=== PATIENT | female | born 1990 | race Caucasian/White ===

== ENCOUNTER 2016-09-26 15:28 | Emergency (ER) | payer OTHER ==
[~2016-09-26] VITALS: Ht 162.6 cm; Wt 68.2 kg
[~2016-09-26 15:28] MED LIST: IBUP-2070 PO; LABE200T PO; PREN1TAB80 PO
[2016-09-26 16:09] LABS: BASOPHILS # (AUTO) 0.04 K/uL (0.00-0.20); BASOPHILS % (AUTO) 0.3 % (0.0-2.0); EOSINOPHILS # (AUTO) 0.13 K/uL (0.00-0.70); EOSINOPHILS % (AUTO) 1.13 % (1.0-6.0); LYMPHOCYTES # (AUTO) 1.7 K/uL (1.0-4.8); LYMPHOCYTES % (AUTO) 15.2 % (22.0-44.0); MEAN CORPUSCULAR HEMOGLOBIN 27.9 pg (26.0-34.0); MEAN CORPUSCULAR HGB CONC 34.1 G/dL (31.0-37.0); MEAN CORPUSCULAR VOLUME 82 fL (80-100); MONOCYTES # (AUTO) 0.5 K/uL (0.1-1.0); MONOCYTES % (AUTO) 4.8 % (2.0-9.0); NEUTROPHILS # (AUTO) 8.7 K/uL (1.8-7.7); NEUTROPHILS % (AUTO) 78.6 % (40.0-70.0); PLATELET COUNT (AUTO) 278 K/uL (150-450); RED BLOOD CELL COUNT(AUTO) 4.65 MIL/uL (4.00-5.20); RED CELL DISTRIBUTION WIDTH 13.1 % (11.5-14.5); WHITE BLOOD COUNT (AUTO) 11.1 K/uL (4.5-11.0)
[2016-09-26 17:55] VITALS: BP 131/85
== END 2016-09-26 17:57 | disposition home or self-care (01) ==
LOC: EMS 15:29 → EEVIPCON 15:29 → EMS 17:57
DX: O20.8 Other hemorrhage in early pregnancy (principal); Z3A.08 8 weeks gestation of pregnancy
CPT/HCPCS: 76801; 76817; 86901; 99285

== ENCOUNTER → 2017-03-13 | Outpatient (CLI) | payer OTHER ==
[~2017-03-13] MED LIST changes: -LABE200T PO
== END | disposition home or self-care (01) ==
LOC: LABMN 14:53
PROVIDERS: ATTEND Internal Medicine
DX: Z11.1 Encounter for screening for respiratory tuberculosis (principal)
CPT/HCPCS: 86480

== ENCOUNTER 2017-03-25 11:25 | Observation (INO) | payer OTHER ==
[~2017-03-25] VITALS: Ht 162.6 cm; Wt 77.6 kg
[2017-03-25 11:33] VITALS: BP 122/69
[2017-03-25 12:47] LABS: GLUCOSE,POINT OF CARE 130 MG/DL (70-110)
== END 2017-03-25 12:20 | disposition home or self-care (01) ==
LOC: 4S 11:25
PROVIDERS: ADMIT Obstetrics & Gynecology Gynecology; ATTEND Obstetrics & Gynecology Gynecology
DX: O24.419 Gestational diabetes mellitus in pregnancy, unspecified control (principal); Z3A.34 34 weeks gestation of pregnancy
CPT/HCPCS: 59025; 82962; G0378

== ENCOUNTER 2017-03-28 09:00 | Observation (INO) | payer OTHER ==
[2017-03-28 09:22] VITALS: BP 120/75
[2017-03-28] MEDS ORDERED: GLYB1.253 PO (09:35)
[2017-03-28] MEDS ORDERED: DIPH25 PO (09:45)
[2017-03-28 09:57] LABS: GLUCOSE,POINT OF CARE 122 MG/DL (70-110)
== END 2017-03-28 10:15 | disposition home or self-care (01) ==
LOC: 4S 09:00
PROVIDERS: ADMIT Specialist; ATTEND Specialist
DX: O24.419 Gestational diabetes mellitus in pregnancy, unspecified control (principal); Z3A.34 34 weeks gestation of pregnancy
CPT/HCPCS: 59025; 82962; G0378

== ENCOUNTER 2017-03-28 11:03 | Observation (INO) | payer OTHER ==
[~2017-03-28] VITALS: Ht 162.6 cm; Wt 78.0 kg
[~2017-03-28 11:03] MED LIST changes: +DIPH25 PO; +GLYB1.253 PO
[2017-03-30 11:28] LABS: GLUCOSE,POINT OF CARE 88 MG/DL (70-110)
== END 2017-03-30 14:00 | disposition home or self-care (01) ==
LOC: 4S 03-30 10:49
PROVIDERS: ADMIT Specialist; ATTEND Specialist
DX: O36.8130 Decreased fetal movements, third trimester, not applicable or unspecified (principal); O24.419 Gestational diabetes mellitus in pregnancy, unspecified control; Z3A.34 34 weeks gestation of pregnancy
CPT/HCPCS: 59025; 76805; 82962; G0378

== ENCOUNTER 2017-04-03 18:57 | Observation (INO) | payer OTHER ==
[~2017-04-03] VITALS: Ht 162.6 cm; Wt 172.0 kg
[2017-04-03 19:42] VITALS: BP 124/80
[2017-04-03 22:07] LABS: GLUCOSE,POINT OF CARE 88 MG/DL (70-110)
== END 2017-04-03 20:15 | disposition home or self-care (01) ==
LOC: 4S 18:57
PROVIDERS: ADMIT Obstetrics & Gynecology; ATTEND Obstetrics & Gynecology
DX: O24.419 Gestational diabetes mellitus in pregnancy, unspecified control (principal); Z3A.35 35 weeks gestation of pregnancy
CPT/HCPCS: 59025; 82962; G0378

== ENCOUNTER 2017-04-06 15:29 | Observation (INO) | payer OTHER ==
[2017-04-06 15:48] VITALS: BP 120/82
[2017-04-06 16:02] LABS: GLUCOSE,POINT OF CARE 68 MG/DL (70-110)
[2017-04-06] MEDS: RINGERS SOLUTION,LACTATED 1,000 ML IV SCH ×3 (16:45→19:42)
[2017-04-06] MEDS ORDERED: RINGERS SOLUTION,LACTATED 1,000 ML IV ONE (16:52)
[2017-04-06] MEDS: NIFEdipine 10 MG CAPSULE PO SCH (22:24)
[2017-04-06 23:13] LABS: GLUCOSE,POINT OF CARE 82 MG/DL (70-110)
[2017-04-07 01:07] LABS: GLUCOSE,POINT OF CARE 66 MG/DL (70-110)
[2017-04-07] MEDS: RINGERS SOLUTION,LACTATED 1,000 ML IV SCH (03:03)
[2017-04-07 03:12] LABS: GLUCOSE,POINT OF CARE 66 MG/DL (70-110)
[2017-04-07] MEDS: NIFEdipine 10 MG CAPSULE PO SCH ×2 (04:09→09:45)
[2017-04-07 05:07] LABS: GLUCOSE,POINT OF CARE 75 MG/DL (70-110)
[2017-04-07 12:34] LABS: GLUCOSE,POINT OF CARE 83 MG/DL (70-110)
[2017-04-07 12:34] LABS: GLUCOSE,POINT OF CARE 72 MG/DL (70-110)
== END 2017-04-07 11:10 | disposition home or self-care (01) ==
LOC: 4S 15:29
PROVIDERS: ADMIT Obstetrics & Gynecology; ATTEND Obstetrics & Gynecology
DX: O24.419 Gestational diabetes mellitus in pregnancy, unspecified control (principal); Z3A.36 36 weeks gestation of pregnancy
CPT/HCPCS: 59025 ×2; 76805; 82962 ×2; 87210; 96360; 96361 ×2; G0378 ×2; J7120 ×2

== ENCOUNTER 2017-04-10 08:25 | Observation (INO) | payer OTHER ==
[2017-04-10] MEDS ORDERED: DSS100 PO (08:57)
[2017-04-10 09:01] VITALS: BP 131/75
[2017-04-10 11:07] LABS: GLUCOSE,POINT OF CARE 82 MG/DL (70-110)
== END 2017-04-10 11:00 | disposition home or self-care (01) ==
LOC: 4S 08:25
PROVIDERS: ADMIT Obstetrics & Gynecology; ATTEND Obstetrics & Gynecology
DX: O24.419 Gestational diabetes mellitus in pregnancy, unspecified control (principal); O99.013 Anemia complicating pregnancy, third trimester; Z3A.36 36 weeks gestation of pregnancy
CPT/HCPCS: 59025; 82962; G0378

== ENCOUNTER 2017-04-13 08:35 | Observation (INO) | payer OTHER ==
[~2017-04-13 08:35] MED LIST changes: +DSS100 PO; -IBUP-2070 PO
[2017-04-13 09:13] LABS: GLUCOSE,POINT OF CARE 74 MG/DL (70-110)
== END 2017-04-13 10:00 | disposition home or self-care (01) ==
LOC: 4S 08:35
PROVIDERS: ADMIT Obstetrics & Gynecology; ATTEND Obstetrics & Gynecology
DX: O24.419 Gestational diabetes mellitus in pregnancy, unspecified control (principal); Z3A.36 36 weeks gestation of pregnancy
CPT/HCPCS: 59025; 76816; 82962; G0378

== ENCOUNTER 2017-04-15 19:52 | Observation (INO) | payer OTHER ==
[~2017-04-15] VITALS: Ht 162.6 cm; Wt 78.5 kg
[2017-04-15 20:47] LABS: GLUCOSE,POINT OF CARE 141 MG/DL (70-110)
[2017-04-15 20:51] VITALS: BP 129/79
== END 2017-04-16 01:00 | disposition home or self-care (01) ==
LOC: 4S 19:52
PROVIDERS: ADMIT Obstetrics & Gynecology; ATTEND Obstetrics & Gynecology
DX: O62.9 Abnormality of forces of labor, unspecified (principal); O24.419 Gestational diabetes mellitus in pregnancy, unspecified control; O14.93 Unspecified pre-eclampsia, third trimester; Z3A.37 37 weeks gestation of pregnancy
CPT/HCPCS: 59025; 82962; G0378 ×2

== ENCOUNTER 2017-04-17 09:05 | Observation (INO) | payer OTHER ==
[~2017-04-17] VITALS: Ht 162.6 cm; Wt 77.6 kg
[2017-04-17 09:21] VITALS: BP 127/81
[2017-04-17 09:52] LABS: GLUCOSE,POINT OF CARE 77 MG/DL (70-110)
== END 2017-04-17 11:50 | disposition home or self-care (01) ==
LOC: 4S 09:05
PROVIDERS: ADMIT Obstetrics & Gynecology; ATTEND Obstetrics & Gynecology
DX: O62.9 Abnormality of forces of labor, unspecified (principal); Z3A.37 37 weeks gestation of pregnancy
CPT/HCPCS: 59025; 76805; 82962; G0378

== ENCOUNTER 2017-04-21 09:07 | Observation (INO) | payer OTHER ==
[~2017-04-21] VITALS: Ht 162.6 cm; Wt 78.9 kg
[2017-04-21 09:18] VITALS: BP 126/81
[2017-04-21 12:41] LABS: GLUCOSE COMMENT 1 Doctor Notified; GLUCOSE,POINT OF CARE 93 MG/DL (70-110)
== END 2017-04-21 10:00 | disposition home or self-care (01) ==
LOC: 4S 09:07
PROVIDERS: ADMIT Obstetrics & Gynecology; ATTEND Obstetrics & Gynecology
DX: O24.419 Gestational diabetes mellitus in pregnancy, unspecified control (principal); Z3A.38 38 weeks gestation of pregnancy
CPT/HCPCS: 59025; 82962; G0378

== ENCOUNTER 2017-04-23 11:05 | Inpatient (IN) | payer OTHER ==
[~2017-04-23] VITALS: Ht 167.6 cm; Wt 78.9 kg
[2017-04-23 11:15] VITALS: BP 136/85
[2017-04-23] MEDS ORDERED: RINGERS SOLUTION,LACTATED 1,000 ML IV ONE (15:42)
[2017-04-23] MEDS ORDERED: CITRIC ACID/SODIUM CITRATE 30 ML SOLUTION UDCUP PO ONE (15:45)
[2017-04-23] MEDS ORDERED: METOCLOPRAMIDE HCL 5 MG/ML 2 ML VIAL IVP ONE (15:45)
[2017-04-23] MEDS: DEXTROSE 5%-0.45% SODIUM CHL 1,000 ML IV SCH (15:50)
[2017-04-23 15:52] LABS: GLUCOSE,POINT OF CARE 84 MG/DL (70-110)
[2017-04-23 16:18] LABS: BASOPHILS % (AUTO) 0.9 % (0.0-2.0); EOSINOPHILS % (AUTO) 0.9 % (1.0-6.0); HEMATOCRIT 36.5 % (36-46); HEMOGLOBIN 12.6 g/dL (12.0-16.0); LYMPHOCYTES # (AUTO) 1.3 K/uL (1.0-4.8); MEAN CORPUSCULAR HEMOGLOBIN 29.4 pg (26.0-34.0); MEAN CORPUSCULAR HGB CONC 34.6 G/dL (31.0-37.0); MEAN CORPUSCULAR VOLUME 85 fL (80-100); MONOCYTES # (AUTO) 0.5 K/uL (0.1-1.0); MONOCYTES % (AUTO) 5.4 % (2.0-9.0); NEUTROPHILS # (AUTO) 7.5 K/uL (1.8-7.7); NEUTROPHILS % (AUTO) 78.8 % (40.0-70.0); RED CELL DISTRIBUTION WIDTH 14.1 % (11.5-14.5); WHITE BLOOD COUNT (AUTO) 9.5 K/uL (4.5-11.0)
[2017-04-23] MEDS ORDERED: MIDAZOLAM HCL 2 MG/2 ML VIAL ONE (17:49)
[2017-04-23] MEDS ORDERED: MORPHINE SULFATE/PF 0.5 MG/ML 10 ML AMP ONE (17:49)
[2017-04-23] MEDS ORDERED: FentaNYL CITRATE-PF 100 MCG/2 ML VIAL ONE (17:50)
[2017-04-23] MEDS ORDERED: GUM MASTIC/STORAX/MSAL/ALCOHOL LIQUID 0.67 ML VIAL TP ONE (17:50)
[2017-04-23] MEDS ORDERED: SODIUM CHLORIDE 0.9% 100 ML ONE (18:03)
[2017-04-23] MEDS ORDERED: RINGERS SOLUTION,LACTATED 1,000 ML IV SCH (19:58)
[2017-04-23] MEDS ORDERED: OxyCODONE HCL/ACETAMINOPHEN 5-325 MG TABLET PO PRN (20:00)
[2017-04-23] MEDS ORDERED: LANOLIN 7 GM OINTMENT TP PRN (20:00)
[2017-04-23] MEDS ORDERED: MORPHINE SULFATE 2 MG/ML SYRINGE IVP PRN (20:15)
[2017-04-23] MEDS ORDERED: FentaNYL CITRATE-PF 100 MCG/2 ML VIAL IVP PRN (20:15)
[2017-04-23] MEDS ORDERED: ONDANSETRON HCL 4 MG/2 ML VIAL IVP PRN ×2 (20:15)
[2017-04-23] MEDS ORDERED: OXYGEN THERAPY IH SCH ×2 (20:15)
[2017-04-23] MEDS ORDERED: MORPHINE SULFATE 4 MG/ML SYRINGE IVP PRN (20:15)
[2017-04-23] MEDS ORDERED: DiphenhydrAMINE HCL 50 MG/ML VIAL IVP PRN ×2 (20:15)
[2017-04-23] MEDS ORDERED: DEXAMETHASONE SOD PHOS 4 MG/ML VIAL IVP ONE (22:50)
[2017-04-23] MEDS ORDERED: PROPOFOL 1% 20 ML VIAL IVP ONE (22:50)
[2017-04-23] MEDS ORDERED: ONDANSETRON HCL 4 MG/2 ML VIAL IVP ONE (22:50)
[2017-04-23] MEDS ORDERED: OXYTOCIN 10 UNITS/ML VIAL IM ONE (22:50)
[2017-04-23] MEDS ORDERED: KETOROLAC TROMETHAMINE 60 MG/2 ML VIAL IM ONE (22:50)
[2017-04-23] MEDS: NALBUPHINE HCL 10 MG/ML VIAL IVP SCH (23:48)
[2017-04-24] MEDS: ACETAMINOPHEN 1000 MG/ISO-OSM 100 ML IV SCH ×2 (00:06→07:45)
[2017-04-24] MEDS ORDERED: PNEUMOCOCCAL VACCINE POLYVALENT 0.5 ML VIAL [PPSV23] IM ONE (01:30)
[2017-04-24] MEDS: DEXTROSE 5%-0.45% SODIUM CHL 1,000 ML IV SCH ×2 (04:34→15:37)
[2017-04-24] MEDS: NALBUPHINE HCL 10 MG/ML VIAL IVP SCH (06:13)
[2017-04-24 06:34] LABS: EOSINOPHILS % (AUTO) 0 % (1.0-6.0); HEMATOCRIT 33.8 % (36-46); HEMOGLOBIN 11.6 g/dL (12.0-16.0); LYMPHOCYTES # (AUTO) 0.9 K/uL (1.0-4.8); LYMPHOCYTES % (AUTO) 6.5 % (22.0-44.0); MEAN CORPUSCULAR HEMOGLOBIN 29.5 pg (26.0-34.0); MEAN CORPUSCULAR HGB CONC 34.5 G/dL (31.0-37.0); MEAN CORPUSCULAR VOLUME 85 fL (80-100); MONOCYTES # (AUTO) 0.4 K/uL (0.1-1.0); MONOCYTES % (AUTO) 3.2 % (2.0-9.0); NEUTROPHILS # (AUTO) 12.5 K/uL (1.8-7.7); RED BLOOD CELL COUNT(AUTO) 3.95 MIL/uL (4.00-5.20); RED CELL DISTRIBUTION WIDTH 13.5 % (11.5-14.5); WHITE BLOOD COUNT (AUTO) 13.9 K/uL (4.5-11.0)
[2017-04-24 06:49] LABS: NEUTROPHILS % (AUTO) 90.3 % (40.0-70.0); RBC MORPHOLOGY COMMENT NORMAL RBC MORPH
[2017-04-24] MEDS: IBUPROFEN 800 MG TABLET PO SCH ×2 (12:02→18:48)
[2017-04-24] MEDS ORDERED: IBUPROFEN 600 MG TABLET PO PRN (20:00)
[2017-04-24] MEDS: MAGNESIUM HYDROXIDE SUSPENSION 30 ML UDCUP PO SCH (21:13)
[2017-04-24] MEDS: SENNA/DOCUSATE SODIUM 187-50 MG TABLET PO SCH (21:13)
[2017-04-25] MEDS: IBUPROFEN 800 MG TABLET PO SCH ×3 (01:12→14:21)
[2017-04-25] MEDS: OxyCODONE HCL/ACETAMINOPHEN 5-325 MG TABLET PO PRN ×2 (01:13→09:18)
[2017-04-25] MEDS: MAGNESIUM HYDROXIDE SUSPENSION 30 ML UDCUP PO SCH (09:18)
[2017-04-25] MEDS: SENNA/DOCUSATE SODIUM 187-50 MG TABLET PO SCH (14:23)
[2017-04-25] MEDS ORDERED: OXYC-38 PO (17:56)
[2017-04-25] MEDS ORDERED: DSS100 PO (17:58)
[2017-04-25] MEDS ORDERED: IBUP-2070 PO (17:58)
== END 2017-04-25 19:40 | disposition home or self-care (01) | DRG 766 ==
LOC: 4S 11:05 → OBSVTOIN 11:05 → 4S 20:18
PROVIDERS: ADMIT Obstetrics & Gynecology; ATTEND Obstetrics & Gynecology
PROC: 10D00Z1 Extraction of Products of Conception, Low, Open Approach (ICD-10-PCS; principal; 2017-04-23)
DX: O34.211 Maternal care for low transverse scar from previous cesarean delivery (principal); Z37.0 Single live birth; Z3A.38 38 weeks gestation of pregnancy
CPT/HCPCS: 82962; 86850; 86900; 86901; 87081; J0131; J0690; J1100; J1885; J2250; J2274; J2300; J2405; J2590; J2704; J2765; J3010; J7050; J7120